=== PATIENT | female | born 1975 | race Caucasian/White ===

== ENCOUNTER 2021-04-07 19:50 | Emergency (ER) | payer MEDICAID ==
[~2021-04-07] VITALS: Ht 170.2 cm; Wt 77.0 kg
[2021-04-07 20:04] VITALS: BP 159/82
--- NOTE | 2021-04-07 20:10 | NUR ---
[employer] OFFICER WITH PT AT BEDSIDE. PT IN HANDCUFFS
== END 2021-04-07 20:36 ==
LOC: ER 19:51
DX: Z00.8 Encounter for other general examination (principal); Z88.5 Allergy status to narcotic agent
CPT/HCPCS: 99283